=== PATIENT | male | born 1945 ===

== ENCOUNTER 2019-01-14 12:26 | Emergency (ER) | payer OTHER ==
[~2019-01-14] VITALS: Ht 175.3 cm; Wt 97.5 kg
[~2019-01-14 12:26] MED LIST: NABUMETONE500 MG PO; PERCOCET 5/3251 TAB PO
[2019-01-14] MEDS ORDERED: JANUMET 50-1,01 EACH (13:00)
[2019-01-14] MEDS ORDERED: HYZAAR 100-251 EACH (13:01)
[2019-01-14] MEDS ORDERED: GLIMEPIRIDE4 MG (13:01)
[2019-01-14] MEDS ORDERED: CRESTOR20 MG (13:02)
== END 2019-01-14 16:19 | disposition home or self-care (01) ==
LOC: ER 12:26
DX: L03.031 Cellulitis of right toe (principal)